=== PATIENT | female | born 1960 | race Caucasian/White ===

== ENCOUNTER → 2016-09-22 | Outpatient (CLI) | payer BC ==
[2016-09-22 09:42] LABS: BASOPHILS # (AUTO) 0.04 10*3/UL; BASOPHILS % (AUTO) 0.5 % (0-1); BILIRUBIN,URINE NEGATIVE (NEG); COLOR,URINE YELLOW; EOSINOPHILS # (AUTO) 0.14 10*3/UL; EOSINOPHILS % (AUTO) 1.8 % (0-8); HEMATOCRIT 49.7 % (37.0-47.0); HEMOGLOBIN 16.3 g/dL (12.0-16.0); LYMPHOCYTES # (AUTO) 2.08 10*3/uL; MEAN CORPUSCULAR HEMOGLOBIN 28.3 PG (27-31); MEAN CORPUSCULAR HGB CONC 32.8 g/dL (33-37); MEAN CORPUSCULAR VOLUME 86.3 FL (81-99); MEAN PLATELET VOLUME 9.5 FL (7.4-12.2); MONOCYTES # (AUTO) 0.78 10*3/UL (0.3-0.8); NEUTROPHILS # (AUTO) 4.71 10*3/UL; NEUTROPHILS % (AUTO) 60.6 % (50-80); NITRATE,URINE NEGATIVE (NEG); OCCULT BLOOD,URINE NEGATIVE (NEG); PROTEIN,URINE NEGATIVE (NEG); RED BLOOD COUNT 5.76 10^6/uL (4.20-5.40); UROBILINOGEN,URINE 0.2 EU/dL (0.2)
[2016-09-22 09:49] LABS: PLATELET MORPHOLOGY COMMENT NORMAL MORPHOLOGY (NORM); RBC MORPHOLOGY COMMENT NORMAL MORPHOLOGY (NORM); WBC MORPHOLOGY COMMENT NORMAL MORPHOLOGY (NORM)
[2016-09-22 09:50] LABS: BLOOD UREA NITROGEN 18 mg/dL (7-22); CALCIUM 9.5 mg/dL (8.7-10.7); EST GLOMERULAR FILTRATION > 60 (>60 ml/min/1.73m(2)); SERUM ALBUMIN 4.4 g/dL (3.5-4.8)
[2016-09-22 09:54] LABS: CREATININE, URINE 36.1 MG/DL (15-500)
[2016-09-22 10:01] LABS: HEMOGLOBIN A1C 9.76 % (4.2-6.0)
[2016-09-22 10:13] LABS: CHOL/HDL RATIO 4.65 RATIO (0-4.0); URIC ACID 5.5 mg/dl (2.5-7.5)
[2016-09-22 11:10] LABS: GLUCOSE, URINE (UA) >=1000 mg/dL (NEG)
[2016-09-22 14:08] LABS: CLARITY,URINE CLEAR (CLEAR); URINE SAMPLE TYPE CLEAN CATCH URINE
== END ==
LOC: LAB 09:20
PROVIDERS: ATTEND Internal Medicine
DX: E11.9 Type 2 diabetes mellitus without complications (principal); I10 Essential (primary) hypertension; Z87.442 Personal history of urinary calculi
CPT/HCPCS: 36415; 80053; 80061; 81003; 82043; 83036; 84443; 84550; 85025

== ENCOUNTER → 2016-09-22 | Outpatient (CLI) | payer BC ==
--- NOTE | 2016-09-22 18:23 | DI ---
LEFT DIAGNOSTIC MAMMOGRAMS, 09/22/2016 3:08 PM: Clinical History: Recall for abnormal screening mammogram. A new 5 mm nodule was noted in the left up per-outer quadrant in the anterior third of the breast near the 1:00 position. These were not present on outside comparison films from 11/25/2011. Prior Exam: 09/01/2016. Digital tomosynthesis scans of the left breast are obtained with the [employer] Digital Breast U nit. C-View images are obtained in the same projections as in the screening exam. CAD review is also performed. Breast tissue density is rated as having scattered areas of fibroglandular breast tissue. There is a 5 mm low-density opaque well-circumscribed lesion in the upper outer quadrant of the left breast and anterior third with respect to depth. This is at the 1:00 position and is most consistent with a anusha gn cyst. No abnormal calcifications are noted. Skin contour, nipple, and lower axillary region are no rmal. Follow Up: Breast ultrasound is pending BIRADS Category: 2. Benign finding. The 5 mm lesion probably represents a benign cyst. Assessment: Benign finding.
--- NOTE | 2016-09-22 21:46 | DI ---
LEFT BREAST ULTRASOUND, 09/22/2016 3:09 PM: Clinical History: Recall for abnormal screening mammogram that revealed a new 5 mm nodule in the left upper-outer quadrant near the 1:00 position in the anterior third of the breast. A diagnostic left m ammogram performed today with digital breast tomosynthesis confirms the presence of a well-circumscri bed low-density opaque nodule near the 1:00 position as seen on the screening films. The lesion was c onsistent with a benign cyst mammographically. Scans are performed by the technologist and myself through all four quadrants of the left breast with the high resolution linear array probe. Color Doppler ultrasound was also performed. There is a 5 mm simple cyst located approximately 15 mm deep to the skin surface near the 12:00 posit ion. Because the lesion is close to the surface, slight changes of rotation of the breast either in a clockwise or counterclockwise direction during positioning of the breast for the craniocaudal view c an change the apparent location of this lesion. No other lesions are seen in the breasts. Follow Up: As long as this patient remains clinically asymptomatic, she may reenter a routine breast surveillance protocol consisting of monthly self breast exams if she so desires, and mammograms every year. BIRADS Category: 2. Benign finding. The lesion seen on mammography corresponds to the 5 mm cyst seen on the breast ultrasound exam. Assessment: Benign finding.
== END ==
LOC: MAMMO 09:19
PROVIDERS: ATTEND Obstetrics & Gynecology
DX: R92.8 Other abnormal and inconclusive findings on diagnostic imaging of breast (principal); N63 Unspecified lump in breast
CPT/HCPCS: 76641; G0206; G0279